=== PATIENT | female | born 1990 | race Hispanic/Latino ===

== ENCOUNTER 2018-10-14 20:03 | Inpatient (IN) | payer OTHER, BC ==
--- NOTE | 2018-10-14 21:33 | ED PDOC ---
HPI: General Adult Time Seen by Provider: 10/14/18 20:51 Chief Complaint (Nursing): Medical Clearance Chief Complaint (Provider): sent by PMD History Per: Patient History/Exam Limitations: no limitations Onset/Duration Of Symptoms: Days (2) Current Symptoms Are (Timing): Gone Now Additional Complaint(s): 27 y/o female sent by PMD for evaluation. Patient states Sunday night she was with her friend on her 4th alcoholic drink when she suddenly developed blurry vision to both eyes and then was trying to speak but no words were coming out. Patient states she then developed right-sided facial paralysis and was not able to move her right hand when she thought she was. Patient states symptoms lasted 20 minutes then resolved. Notes mild posterior headache yesterday, resolved without medication. Denies fever, headache, dizziness, extremity numbness/weakness, chest pain, shortness of breath, palpitations, changes in bowel movements, urinary symptoms, recent travel. Patient was evaluated by Dr. Reed Fierro today and sent to ED for further evaluation NIHSS Stroke Scale - Date/Time Evaluation Performed Date Performed: 10/14/18 Time Performed: 21:25 When Was NIHSS Performed: 24 hours post onset S/S - How Severe is the Stroke Level of Consciousness: 0=Alert LOC to Questions: 0=Both comments correct LOC to commands: 0=Obeys both correctly Best Gaze: 0=Normal Visual: 0=No visual loss Facial: 0=Normal Motor Arm - Left: 0=No drift Motor Arm - Right: 0=No drift Motor Leg - Left: 0=No drift Motor Leg - Right: 0=No drift Limb Ataxia: 0=Absent Sensory: 0=Normal Best Language: 0=No aphasia Dysarthia: 0=Normal articulation Extinction & Inattention (Neglect): 0=Normal, no object Score: 0 Past Medical History Reviewed: Historical Data, Nursing Documentation, Vital Signs Vital Signs: Last Vital Signs Temp 98.7 F 10/14/18 20:44 Pulse 69 10/14/18 20:44 Resp 16 10/14/18 20:44 BP 124/78 10/14/18 20:44 Pulse Ox 98 10/14/18 20:44 - Medical History PMH: No Chronic Diseases - Surgical History Surgical History: No Surg Hx - Family History Family History: States: No Known Family Hx - Home Medications Home Medications: Ambulatory Orders Medication Instructions Recorded Hydroxyzine HCl 10 mg PO DAILY PRN 10/14/18 - Allergies Allergies/Adverse Reactions: Allergies Allergy/AdvReac Type Severity Reaction Status Date / Time No Known Allergies Allergy Verified 10/14/18 20:42 Review of Systems ROS Statement: Except As Marked, All Systems Reviewed And Found Negative Physical Exam - Reviewed Nursing Documentation Reviewed: Yes Vital Signs Reviewed: Yes - Physical Exam Appears: Positive for: Well, Non-toxic, No Acute Distress Head Exam: Positive for: ATRAUMATIC, NORMAL INSPECTION, NORMOCEPHALIC Skin: Positive for: Normal Color Eye Exam: Positive for: EOMI, PERRL, Nystagmus (horizontal b/l). Negative for: Conjunctival injection ENT: Positive for: Normal ENT Inspection Cardiovascular/Chest: Positive for: Regular Rate, Rhythm Respiratory: Positive for: Normal Breath Sounds Gastrointestinal/Abdominal: Positive for: Normal Exam Back: Positive for: Normal Inspection Extremity: Positive for: Normal ROM Neurologic/Psych: Positive for: Alert, Oriented (x3). Negative for: Motor/Sensory Deficits, Facial Droop - Laboratory Results Result Diagrams: 10/14/18 22:18 10/14/18 22:18 - ECG ECG: Positive for: Viewed By Me (reviewed by ED attending) ECG Rhythm: Positive for: Sinus Bradycardia (51bpm) O2 Sat by Pulse Oximetry: 98 - Progress ED Course And Treament: -cbc -cmp -alcohol -urine drug screen -urinalysis -ekg -CT head -upreg EXAM: CT Head without Intravenous Contrast. CLINICAL HISTORY: Rt facial paralysis/ slurred speech 2 DAYS AGO TECHNIQUE: Axial computed tomography images of the head/brain without intravenous contrast. 702.84 mGy-cm COMPARISON: None provided. FINDINGS: BRAIN There is evidence of a subacute lacunar infarct in the left thalamus/left internal capsule region near series 2, images 11-12. The possibility of a small underlying lesion is not excluded. Consider correlation with MRI if indicated. Questionably a 2nd lacunar infarct in the left subinsular region, versus a prominent sulcus, near series 2, image 8-9. No midline shift. No evidence for acute intracranial hemorrhage. VENTRICLES: No hydrocephalus. ORBITS: The orbits are unremarkable. SINUSES AND MASTOIDS: The paranasal sinuses and mastoid air cells are clear. BONES: No fracture. SOFT TISSUES: Unremarkable. MISCELLANEOUS: No evidence for acute territorial infarction. IMPRESSION: 1. There is evidence of a subacute lacunar infarct in the left thalamus/left internal capsule region near series 2, images 11-12. The possibility of a small underlying lesion is not excluded. Consider correlation with MRI if indicated. 2. Questionably a 2nd lacunar infarct in the left subinsular region, versus a prominent sulcus, near series 2, image 8-9. 3. No evidence for acute territorial infarction. 4. No midline shift. 5. No evidence for acute intracranial hemorrhage Case discussed with Dr. Friedman, Neurologist on-call; recommends aspirin dose, admit to telemetry, and MRI in am Case discussed with Dr. Fierro for admission. Dr. Fierro spoke with ED attending Dr. Minor to request placement in ICU Patient evaluated by Dr. Pang, pot runner on-call, who does not feel patient requires ICU placement at this time Bilateral lower extremities venous duplex. Indication: Subacute brain infarct. Findings: Real-time ultrasound images of the deep venous system with Doppler evaluation. Normal compression, spontaneity and augmentation. Normal color Doppler. No intraluminal thrombus is seen. IMPRESSION: No evidence of deep venous thrombosis Disposition - Clinical Impression Clinical Impression: CVA (cerebral vascular accident) - Patient ED Disposition Is Patient to be Admitted: Yes - Disposition Disposition Time: 23:30 Condition: FAIR
[2018-10-14 22:34] LABS: BASO # 0.1 K/uL (0.0-0.2); BASO % 1.3 % (0.0-2.0); EOS # 0.1 K/uL (0.0-0.7); EOS % 1.7 % (0.0-4.0); HEMOGLOBIN 12.6 g/dL (12.0-16.0); LYMPH # 2.6 K/uL (1.0-4.3); LYMPH % 40.1 % (20.0-40.0); MEAN CORPUSCULAR HEMOGLOBIN 30.8 pg (27.0-31.0); MEAN CORPUSCULAR HGB CONC 32.7 g/dL (33.0-37.0); MEAN PLATELET VOLUME 8.9 fl (7.2-11.7); MONO # 0.3 K/uL (0.0-0.8); NEUT # 3.4 K/uL (1.8-7.0); NEUT % 51.9 % (50.0-75.0); RBC 4.09 Mil/uL (3.80-5.20); RED CELL DISTRIBUTION WIDTH 12.5 % (11.5-14.5); WHITE BLOOD COUNT 6.5 K/uL (4.8-10.8)
[2018-10-14 22:40] LABS: ALB/GLOB RATIO 1.2 (1.0-2.1); ALBUMIN 3.9 g/dL (3.5-5.0); ALT/SGPT 22 U/L (9-52); AST/SGOT 18 U/L (14-36); BLOOD UREA NITROGEN 13 mg/dl (7-17); CALCIUM 9.1 mg/dL (8.4-10.2); GFR NON-AFRICAN AMERICAN > 60
[2018-10-14 22:56] LABS: BARBITURATES, UR NEGATIVE (NEGATIVE); BENZODIAZEPINES, UR NEGATIVE (NEGATIVE); OPIATES, UR NEGATIVE (NEGATIVE); PHENCYCLIDINE, UR NEGATIVE (NEGATIVE)
--- NOTE | 2018-10-15 01:35 | CP.PCM.CON ---
History of Present Illness - History of Present Illness History of Present Illness: CC: Subacute CVA HPI: This is a 27 y/o with MHx significant for aquagenic urticara who comes in with c/o of TRACY today and CVA like symptoms about 2 days prior. Patient states that whe was out for dinner on Sat night, and after coming back home, she had a period where her vision was blurry. This was followed by weakness/abnormal sensation in R arm and paralysis of R side of face. This episode lasted 20 minutes and resolved. She states she had had EtOH prior -- but only 2 drinks -- and was not at all intoxicated. The next day patient noted multiple episodes (10+) of what sounds like word-finding difficulty, where she was trying to say something, but the wrong word would come out, and this is very unusual for her. Today she had a TRACY from the AM, and she went to see her PCP, and was sent to the ER for further workup. Patient denies any prior episodes like this before. Denies any recent f/c/n/v/d. Denies any CP, SOB, or palpitations. Denies any prior history of migraine TRACY. Denies any syncope/pre-syncope. She denies any new medications. She denies any drug use. She She notes that she is generally very active, and had run a marathon last month. She does note that she is on OCP. ROS: 14 systems reviewed, negative other than HPI MHx: aquagenic urticaria SHx: None Allergies: aquagenic urticaria as above Medications: Per med rec Family Hx: No significant illnesses in mother/father Social Hx: Lives with family, no tobacco, occ social EtOH Past Patient History - Past Social History Smoking Status: Never Smoked - PSYCHIATRIC Hx Substance Use: No Meds Allergies/Adverse Reactions: Allergies Allergy/AdvReac Type Severity Reaction Status Date / Time No Known Allergies Allergy Verified 10/14/18 20:42 Physical Exam - Constitutional Appears: No Acute Distress - Head Exam Head Exam: ATRAUMATIC, NORMOCEPHALIC - Eye Exam Eye Exam: EOMI, PERRL Pupil Exam: NORMAL ACCOMODATION - ENT Exam ENT Exam: Mucous Membranes Moist - Neck Exam Neck exam: Positive for: Full Rom - Respiratory Exam Respiratory Exam: Clear to Auscultation Bilateral, NORMAL BREATHING PATTERN - Cardiovascular Exam Cardiovascular Exam: REGULAR RHYTHM, +S1, +S2 Additional comments: no mumurs are noted - GI/Abdominal Exam GI & Abdominal Exam: Normal Bowel Sounds, Soft - Extremities Exam Extremities exam: Positive for: full ROM, normal inspection - Neurological Exam Neurological exam: Alert, CN II-XII Intact, Oriented x3 Additional comments: no focal deficits at this time - Psychiatric Exam Psychiatric exam: Normal Affect, Normal Mood - Skin Skin Exam: Dry, Warm Results - Vital Signs Recent Vital Signs: Last Vital Signs Temp 98.7 F 10/14/18 20:44 Pulse 69 10/14/18 20:44 Resp 16 10/14/18 20:44 BP 124/78 10/14/18 20:44 Pulse Ox 98 10/15/18 01:10 - Labs Result Diagrams: 10/14/18 22:18 10/14/18 22:18 Labs: Laboratory Results - last 24 hr 10/14/18 10/14/18 10/14/18 22:18 22:18 22:18 WBC 6.5 RBC 4.09 Hgb 12.6 Hct 38.5 MCV 94.0 MCH 30.8 MCHC 32.7 L RDW 12.5 Plt Count 247 MPV 8.9 Neut % (Auto) 51.9 Lymph % (Auto) 40.1 H [place] % (Auto) 5.0 Eos % (Auto) 1.7 Baso % (Auto) 1.3 Neut # (Auto) 3.4 Lymph # (Auto) 2.6 [place] # (Auto) 0.3 Eos # (Auto) 0.1 Baso # (Auto) 0.1 Sodium 140 Potassium 3.6 Chloride 100 Carbon Dioxide 26 Anion Gap 18 BUN 13 Creatinine 0.6 L Est GFR ( Amer) > 60 Est GFR (Non-Af Amer) > 60 Random Glucose 79 Calcium 9.1 Total Bilirubin 0.3 AST 18 ALT 22 Alkaline Phosphatase 61 Total Protein 7.0 Albumin 3.9 Globulin 3.1 Albumin/Globulin Ratio 1.2 Urine Opiates Screen Negative Urine Methadone Screen Negative Ur Barbiturates Screen Negative Ur Phencyclidine Scrn Negative Ur Amphetamines Screen Negative U Benzodiazepines Scrn Negative U Oth Cocaine Metabols Negative U Cannabinoids Screen Negative Alcohol, Quantitative < 10 - EKG Data EKG Interpreted by: Myself EKG shows normal: Sinus rhythm Rate: Bradycardia - EKG Data EKG comments: Sinus bradycardia - Imaging and Cardiology CT scan - head Status: Image reviewed by me, Report reviewed by me (Prelim read indicates multiple areas of subacute infarct) Assessment & Plan (1) CVA (cerebral vascular accident) Assessment and Plan: 27 y/o female with no other MHx presenting with signs/symptoms suspicious for CVA, which appear to have resolved. CT head notes lesions which may be c/w subacute CVA. At this time, after evaluating the patient, she does not appear to be an appropriate for admission to ICU. She has no current signs/symptoms/residual deficits from the CVA, her mental status is clear, her airway is not compromised, and her labwork thus far is WNL. There is also no acute intervention that needs to be performed in an ICU setting currently. If there is any acute change in her condition, I will re-evaluate her for transfer to ICU. I discussed all of this with her and her family, and they are in agreement with this plan. -Will add a CXR to workup for AM to confirm there are no gross cardiac/pulmonary abormality -Will add a1c to labwork for AM; will also add TSH/FT4 to AM labs to r/o possibility of intermittent a fib triggered by abnormality in thyroid function -Otherwise, MRI, carotid dopplers, and Echo with bubble study in AM as per neuro; ASA as per neuro Status: Acute
--- NOTE | 2018-10-15 10:13 | CT ---
Date of service: 10/14/2018 PROCEDURE: CT HEAD WITHOUT CONTRAST. HISTORY: right facial paralysis/slurred speech on sat COMPARISON: None available. TECHNIQUE: Axial computed tomography images were obtained through the head/brain without intravenous contrast. Radiation dose: Total exam DLP = 702.84 mGy-cm. This CT exam was performed using one or more of the following dose reduction techniques: Automated exposure control, adjustment of the mA and/or kV according to patient size, and/or use of iterative reconstruction technique. FINDINGS: HEMORRHAGE: No intracranial hemorrhage. BRAIN: There is a sub cm lucency identified at the anterior thalamus/medial external capsule suspicious for potential small ischemic event. Underlying lesion is not excluded here. Follow-up MRI without contrast is advised for added characterization. A small well-circumscribed lucency seen at the inferior margins of the left basal ganglia laterally, probably reflecting a dilated perivascular space with chronic lacune less likely. Otherwise, cyst density throughout the rollins and white matter structures is normal otherwise above and below the tentorium including throughout the brainstem. Normal corticomedullary differentiation is otherwise appreciated as well. No suspicious extra-axial collection and midline brain anatomy is unremarkable. VENTRICLES: Unremarkable. No hydrocephalus. CALVARIUM: Unremarkable. PARANASAL SINUSES: Unremarkable as visualized. No significant inflammatory changes. MASTOID AIR CELLS: Unremarkable as visualized. No inflammatory changes. OTHER FINDINGS: None. IMPRESSION: Lucency is ill-defined at the medial left basal ganglia/anterior left thalamus suspicious for potential ischemic event. Follow-up MRI advised without contrast. Probable dilated para space inferior left basal ganglia laterally. Remainder the brain is unremarkable. Concordant preliminary report from [facility], 10/14/2018, 10:53 p.m..
--- NOTE | 2018-10-15 11:28 | MRI ---
Date of service: 10/15/2018 PROCEDURE: MRI BRAIN WITHOUT CONTRAST HISTORY: subacute infarct COMPARISON: None available. TECHNIQUE: Multiplanar, multisequence MR images of the brain were obtained without intravenous contrast enhancement. FINDINGS: HEMORRHAGE: None DWI: Small area of restricted diffusion identified in the anterior and superior left thalamus compatible with acute subacute infarction. BRAIN PARENCHYMA: Exclusive of the left thalamus, remaining brain parenchymal density is normal. Dilated perivascular space in the inferior left basal ganglia as seen in prior head CT performed 10/14/2018. Corticomedullary differentiation remains normal above and below the tentorium exclusive of the left thalamus with brainstem normal in signal intensity. No suspicious extra-axial collection appreciated no mass effect. VENTRICLES: Unremarkable. No hydrocephalus. CRANIUM: Unremarkable. ORBITS: Grossly unremarkable. PARANASAL SINUSES/MASTOIDS: Clear VASCULAR SYSTEM: Skull base flow voids intact. OTHER FINDINGS: None. IMPRESSION: A small infarct is identified at the left thalamus on acute or subacute basis. No mass effect or definite intracranial hemorrhage appreciable. Examination not significantly changed compared prior CT 10/14/2018 with small dilated perivascular space favored over chronic lacune left basal ganglia inferiorly. Examination otherwise unremarkable.
--- NOTE | 2018-10-15 11:42 | CP.PCM.CON ---
History of Present Illness - History of Present Illness History of Present Illness: THE PATIENT IS A 27 YEAR OLD FEMALE WHO STATES THAT SHE HAS ALWAYS BEEN IN EXCELLENT HEALTH IN THE PAST. ON 10/12/18 IN THE EVENING SHE HAD A FEW DRINKS AND THEN HAS BLURRING VISION. RIGHT FACIAL PARALYSIS AND INABILITY TO SPEAK AND USE HER RIGHT HAND. SHE STATES THAT IT LASTED ABOUT THIRTY MINUTES. SHE WAS BETTER SUNDAY EVENING AND EVEN WENT TO WORK YESTERDAY. SHE DID HAVE A HEADACHE THOUGH YESTERDAY. SHE SAW DR SIBLEY IN THE OFFICE YESTERDAY EVENING AND HE REFERRED HER TO THE ER. A CAT SCAN SHOWED A LET CEREBRAL INFARCT AND SHE WAS ADMITTED. SHE DENIES CHEST PAIN, PALPITATIONS OR SYNCOPE. I WAS ASKED TO SEE HER. Past Patient History - Past Medical History & Family History Past Medical History?: No - Past Social History Smoking Status: Never Smoked - NEUROLOGICAL Hx Neurological Disorder: Yes - HEMATOLOGICAL/ONCOLOGICAL Hx AIDS: No Hx Human Immunodeficiency Virus (HIV): No - MUSCULOSKELETAL/RHEUMATOLOGICAL Hx Falls: No - PSYCHIATRIC Hx Substance Use: No - SURGICAL HISTORY Hx Surgeries: No - ANESTHESIA Hx Anesthesia: No Meds Allergies/Adverse Reactions: Allergies Allergy/AdvReac Type Severity Reaction Status Date / Time No Known Allergies Allergy Verified 10/14/18 20:42 Physical Exam - Respiratory Exam Respiratory Exam: Clear to Auscultation Bilateral - Cardiovascular Exam Cardiovascular Exam: REGULAR RHYTHM, +S1, +S2 - Extremities Exam Additional comments: NO LE EDEMA NO SIGNS OF DVT - Additional Findings Additional findings: EKG SINUS RHYTHM SHAKE SPLITTER SINUS RHYTHM CT OF HEAD WITH SMALL LEFT AREA SUSPICIOUS FOR AN INFARCT MRI PENDING Results - Vital Signs Recent Vital Signs: Last Vital Signs Temp 98.3 F 10/15/18 07:52 Pulse 64 10/15/18 07:52 Resp 18 10/15/18 07:52 BP 106/64 10/15/18 07:52 Pulse Ox 98 10/15/18 07:52 - Labs Result Diagrams: 10/14/18 22:18 10/14/18 22:18 Labs: Laboratory Results - last 24 hr 10/14/18 10/14/18 10/14/18 22:18 22:18 22:18 WBC 6.5 RBC 4.09 Hgb 12.6 Hct 38.5 MCV 94.0 MCH 30.8 MCHC 32.7 L RDW 12.5 Plt Count 247 MPV 8.9 Neut % (Auto) 51.9 Lymph % (Auto) 40.1 H [place] % (Auto) 5.0 Eos % (Auto) 1.7 Baso % (Auto) 1.3 Neut # (Auto) 3.4 Lymph # (Auto) 2.6 [place] # (Auto) 0.3 Eos # (Auto) 0.1 Baso # (Auto) 0.1 Sodium 140 Potassium 3.6 Chloride 100 Carbon Dioxide 26 Anion Gap 18 BUN 13 Creatinine 0.6 L Est GFR ( Amer) > 60 Est GFR (Non-Af Amer) > 60 POC Glucose (mg/dL) Random Glucose 79 Calcium 9.1 Total Bilirubin 0.3 AST 18 ALT 22 Alkaline Phosphatase 61 Total Protein 7.0 Albumin 3.9 Globulin 3.1 Albumin/Globulin Ratio 1.2 Free T4 TSH 3rd Generation Urine Opiates Screen Negative Urine Methadone Screen Negative Ur Barbiturates Screen Negative Ur Phencyclidine Scrn Negative Ur Amphetamines Screen Negative U Benzodiazepines Scrn Negative U Oth Cocaine Metabols Negative U Cannabinoids Screen Negative Alcohol, Quantitative < 10 10/15/18 10/15/18 10/15/18 04:30 04:30 05:13 WBC RBC Hgb Hct MCV MCH MCHC RDW Plt Count MPV Neut % (Auto) Lymph % (Auto) [place] % (Auto) Eos % (Auto) Baso % (Auto) Neut # (Auto) Lymph # (Auto) [place] # (Auto) Eos # (Auto) Baso # (Auto) Sodium Potassium Chloride Carbon Dioxide Anion Gap BUN Creatinine Est GFR ( Amer) Est GFR (Non-Af Amer) POC Glucose (mg/dL) 73 Random Glucose Calcium Total Bilirubin AST ALT Alkaline Phosphatase Total Protein Albumin Globulin Albumin/Globulin Ratio Free T4 0.93 TSH 3rd Generation 2.76 Urine Opiates Screen Urine Methadone Screen Ur Barbiturates Screen Ur Phencyclidine Scrn Ur Amphetamines Screen U Benzodiazepines Scrn U Oth Cocaine Metabols U Cannabinoids Screen Alcohol, Quantitative Assessment & Plan - Assessment and Plan (Free Text) Assessment: PROBABLE LEFT CEREBRAL INFARCT Plan: THE PATIENT WAS ADMITTED TO ON TELEMETRY SHE RECEIVED ASPIRIN IN THE ER MRI DONE-REPORT PENDING ECHOCARDIOGRAM NEUROLOGY TO EVALUATE
--- NOTE | 2018-10-15 12:02 | US ---
Date of service: 10/15/2018 PROCEDURE: Bilateral lower extremity venous duplex Doppler. HISTORY: r/out DVT COMPARISON: None available. TECHNIQUE: Bilateral common femoral, superficial femoral, popliteal and posterior tibial veins were evaluated. Flow was assessed with color Doppler, compressibility, assessment of phasic flow and augmentation response. FINDINGS: COMMON FEMORAL VEIN: Right CFV: Unremarkable. Left CFV: Unremarkable. SUPERFICIAL FEMORAL VEIN: Right SFV: Unremarkable. Left SFV: Unremarkable. POPLITEAL VEIN: Right Popliteal: Unremarkable. Left Popliteal: Unremarkable. POSTERIOR TIBIAL VEIN: Right PTV: Unremarkable. Left PTV: Unremarkable. OTHER FINDINGS: None. IMPRESSION: No evidence of deep venous thrombosis. A preliminary report was provided by [employer].
--- NOTE | 2018-10-15 12:33 | CARD ---
APPROVED REPORT Date of service: 10/14/2018 EKG Measurement Heart [id number] <Conclusion> Sinus bradycardia Otherwise normal ECG
[2018-10-15 12:37] LABS: HDL CHOLESTEROL 53 MG/DL (30-70)
[2018-10-15 12:48] LABS: LDL CHOLESTEROL 92 mg/dL (0-129)
--- NOTE | 2018-10-15 13:43 | US ---
Date of service: 10/15/2018 PROCEDURE: Duplex ultrasound of the carotid and vertebral arteries. HISTORY: subacute brain infarct COMPARISON: None available. TECHNIQUE: Grayscale and duplex Doppler evaluation of the cervical carotid and vertebral arteries were performed. The common carotid, carotid bifurcations and cervical ICA and proximal ECA were evaluated. The vertebral arteries were evaluated for gross patency and direction. FINDINGS: RIGHT CAROTID ARTERIES: Common Carotid Artery: Normal. Maximal flow velocity of 95 cm/s. Carotid Bifurcation: Normal. Internal Carotid Artery:Normal. Maximal flow velocity of 103 cm/s. External Carotid Artery (proximal branches): Normal. Maximal flow velocity of 98 cm/s. ICA/CCA Ratio: 1.4 LEFT CAROTID ARTERIES: Common Carotid Artery: Normal. Maximal flow velocity of 91 cm/s. Carotid Bifurcation: Normal. Internal Carotid Artery:Normal. Maximal flow velocity of 93 cm/s. External Carotid Artery (proximal branches): Normal. Maximal flow velocity of 117 cm/s. ICA/CCA Ratio: 1.0 VERTEBRAL ARTERIES: Right Vertebral Artery: Patent. Antegrade flow. Left Vertebral Artery: Patent. Antegrade flow. OTHER FINDINGS: No atherosclerotic calcification present IMPRESSION: No significant stenosis identified in bilateral common or cervical segment internal carotid arteries. Antegrade blood flow bilateral vertebral arteries.
[2018-10-15] MEDS ORDERED: Sodium Chloride 0.9% 50 ML IV ONE (15:20)
[2018-10-15] MEDS ORDERED: Iodixanol 320 MG/ML 100 ML BOTTLE IV ONE (15:20)
[2018-10-15 16:23] LABS: HEMOGLOBIN 12.8 g/dL (12.0-16.0); MEAN CELL VOLUME 93.6 fl (81.0-99.0); MEAN CORPUSCULAR HEMOGLOBIN 31.1 pg (27.0-31.0); MEAN CORPUSCULAR HGB CONC 33.2 g/dL (33.0-37.0); RBC 4.11 Mil/uL (3.80-5.20); RED CELL DISTRIBUTION WIDTH 12.6 % (11.5-14.5); WHITE BLOOD COUNT 4.9 K/uL (4.8-10.8)
[2018-10-15 16:33] LABS: ALB/GLOB RATIO 1.2 (1.0-2.1); ALBUMIN 3.7 g/dL (3.5-5.0); ALT/SGPT 26 U/L (9-52); AST/SGOT 18 U/L (14-36); BLOOD UREA NITROGEN 12 mg/dl (7-17); CALCIUM 9.1 mg/dL (8.4-10.2); GFR NON-AFRICAN AMERICAN > 60; HDL CHOLESTEROL 57 MG/DL (30-70)
--- NOTE | 2018-10-15 16:41 | CT ---
Date of service: 10/15/2018 PROCEDURE: CT Angiography of the Brain and Neck HISTORY: r/o occlusion, mri + cva COMPARISON: Carotid ultrasound 10/15/2018. TECHNIQUE: CT angiography of the head and neck was performed following intravenous contrast administration. Coronal and sagittal maximum intensity projection reformatted images were generated. Contrast Dose: Visipaque 320, 90 cc Radiation dose: Total exam DLP = 382.65 mGy-cm. This CT exam was performed using one or more of the following dose reduction techniques: Automated exposure control, adjustment of the mA and/or kV according to patient size, and/or use of iterative reconstruction technique. FINDINGS: INTERNAL CEREBRAL ARTERIES: Unremarkable. The skull base, petrous, cavernous and supraclinoid segments are bilaterally widely patent. ANTERIOR CEREBRAL ARTERIES: Unremarkable. A1 and A2 segments are widely patent. Smaller distal branches unremarkable, as visualized. MIDDLE CEREBRAL ARTERIES: Unremarkable. M1 and M2 segments are widely patent. Perisylvian branches grossly symmetric. POSTERIOR CIRCULATION: Basilar Artery: Unremarkable. Distal Vertebral Arteries: Balance vertebrobasilar circulation identified. Posterior Cerebral Arteries: Unremarkable. Posterior Inferior Cerebellar Arteries: Unremarkable. NECK CTA: Common Carotid arteries: The bilateral common carotid appear widely patent from their origins to their bifurcations with no significant stenosis appreciated. No evidence to suggest common carotid artery dissection. Internal Carotid arteries: No significant stenosis is appreciated throughout the cervical internal carotid artery segments bilaterally and there is no evidence of dissection either. External Carotid arteries: Appear unremarkable bilaterally. Vertebral arteries: The bilateral vertebral arteries appear normal in caliber from their origins to their distal cervical segments. No significant stenosis or definite pattern of dissection. ANEURYSM/ VASCULAR MALFORMATIONS: None. OTHER FINDINGS: None. IMPRESSION: Unremarkable CT Angiography of the Brain and Neck.
[2018-10-15 16:53] LABS: LDL CHOLESTEROL 96 mg/dL (0-129)
[2018-10-15 16:55] LABS: B-TYPE NATRIURETIC PEPTIDE 53.3 pg/ml (0-450)
[2018-10-15 16:59] LABS: T4 8.66 ug/dl (5.5-11.0)
[2018-10-15 17:13] LABS: T3 1.47 nmol/L (1.49-2.60)
[2018-10-15 17:33] LABS: CK-MB < 0.22 ng/mL (0.0-3.38)
--- NOTE | 2018-10-15 20:12 | CP.PCM.CON ---
History of Present Illness - History of Present Illness History of Present Illness: 27 year old female with a history of eczema, admitted with CVA. The patient notes to blurry vision, right arm weakness and aphasia which lasted about 30 minutes on Sunday. She saw her PMD about her symptoms who referred her to the ER. An MRI of the brain revealed an acute/subacute infarct involving the thalamus. Of note, she is taking control pills. She denies abnormal bleeding, bruising, clotting in the past. Past medical history: Eczema Past surgical history: Denies Family history: Grandmother had strokes in her 60s, grandfather had [place] in his 50's Social history: Denies tobacco, social alcohol, denies illicit drug use. Allergies: NKA Review of systems: All remaining review of systems including HEENT, cardiovascular, respiratory, gastrointestinal, genitourinary, musculoskeletal, dermatologic, neurologic, and psychiatric are negative unless mentioned in the HPI. Past Patient History - Past Medical History & Family History Past Medical History?: No - Past Social History Smoking Status: Never Smoked - NEUROLOGICAL Hx Neurological Disorder: Yes - HEMATOLOGICAL/ONCOLOGICAL Hx AIDS: No Hx Human Immunodeficiency Virus (HIV): No - MUSCULOSKELETAL/RHEUMATOLOGICAL Hx Falls: No - PSYCHIATRIC Hx Substance Use: No - SURGICAL HISTORY Hx Surgeries: No - ANESTHESIA Hx Anesthesia: No Meds Allergies/Adverse Reactions: Allergies Allergy/AdvReac Type Severity Reaction Status Date / Time No Known Allergies Allergy Verified 10/14/18 20:42 - Medications Medications: Current Medications Aspirin (Aspirin) 325 mg PO DAILY ANA Atorvastatin Calcium (Lipitor) 10 mg PO HS ANA Physical Exam - Head Exam Head Exam: ATRAUMATIC - Eye Exam Eye Exam: Normal appearance - ENT Exam ENT Exam: Mucous Membranes Dry - Respiratory Exam Respiratory Exam: NORMAL BREATHING PATTERN - Cardiovascular Exam Cardiovascular Exam: +S1, +S2 - GI/Abdominal Exam GI & Abdominal Exam: Normal Bowel Sounds - Extremities Exam Extremities exam: Positive for: normal inspection - Neurological Exam Neurological exam: Oriented x3 - Psychiatric Exam Psychiatric exam: Normal Affect, Normal Mood - Skin Skin Exam: Warm Results - Vital Signs Recent Vital Signs: Last Vital Signs Temp 98.1 F 10/15/18 20:02 Pulse 60 10/15/18 20:02 Resp 20 10/15/18 20:02 BP 129/83 10/15/18 20:02 Pulse Ox 98 10/15/18 20:02 - Labs Result Diagrams: 10/15/18 16:18 10/15/18 16:18 Labs: Laboratory Results - last 24 hr 10/14/18 10/14/18 10/14/18 22:18 22:18 22:18 WBC 6.5 RBC 4.09 Hgb 12.6 Hct 38.5 MCV 94.0 MCH 30.8 MCHC 32.7 L RDW 12.5 Plt Count 247 MPV 8.9 Neut % (Auto) 51.9 Lymph % (Auto) 40.1 H [place] % (Auto) 5.0 Eos % (Auto) 1.7 Baso % (Auto) 1.3 Neut # (Auto) 3.4 Lymph # (Auto) 2.6 [place] # (Auto) 0.3 Eos # (Auto) 0.1 Baso # (Auto) 0.1 ESR Sodium 140 Potassium 3.6 Chloride 100 Carbon Dioxide 26 Anion Gap 18 BUN 13 Creatinine 0.6 L Est GFR ( Amer) > 60 Est GFR (Non-Af Amer) > 60 POC Glucose (mg/dL) Random Glucose 79 Hemoglobin A1c Calcium 9.1 Total Bilirubin 0.3 AST 18 ALT 22 Alkaline Phosphatase 61 Total Creatine Kinase CK-MB (Mass) Troponin I NT-Pro-B Natriuret Pep Total Protein 7.0 Albumin 3.9 Globulin 3.1 Albumin/Globulin Ratio 1.2 Triglycerides Cholesterol LDL Cholesterol Direct HDL Cholesterol Vitamin B12 Free T4 Thyroxine (T4) Total T3 TSH 3rd Generation Urine Opiates Screen Negative Urine Methadone Screen Negative Ur Barbiturates Screen Negative Ur Phencyclidine Scrn Negative Ur Amphetamines Screen Negative U Benzodiazepines Scrn Negative U Oth Cocaine Metabols Negative U Cannabinoids Screen Negative Alcohol, Quantitative < 10 10/15/18 10/15/18 10/15/18 04:30 04:30 04:30 WBC RBC Hgb Hct MCV MCH MCHC RDW Plt Count MPV Neut % (Auto) Lymph % (Auto) [place] % (Auto) Eos % (Auto) Baso % (Auto) Neut # (Auto) Lymph # (Auto) [place] # (Auto) Eos # (Auto) Baso # (Auto) ESR Sodium Potassium Chloride Carbon Dioxide Anion Gap BUN Creatinine Est GFR ( Amer) Est GFR (Non-Af Amer) POC Glucose (mg/dL) Random Glucose Hemoglobin A1c 5.3 Calcium Total Bilirubin AST ALT Alkaline Phosphatase Total Creatine Kinase CK-MB (Mass) Troponin I NT-Pro-B Natriuret Pep Total Protein Albumin Globulin Albumin/Globulin Ratio Triglycerides Cholesterol LDL Cholesterol Direct HDL Cholesterol Vitamin B12 Free T4 0.93 Thyroxine (T4) Total T3 TSH 3rd Generation 2.76 Urine Opiates Screen Urine Methadone Screen Ur Barbiturates Screen Ur Phencyclidine Scrn Ur Amphetamines Screen U Benzodiazepines Scrn U Oth Cocaine Metabols U Cannabinoids Screen Alcohol, Quantitative 10/15/18 10/15/18 10/15/18 05:13 11:20 12:20 WBC RBC Hgb Hct MCV MCH MCHC RDW Plt Count MPV Neut % (Auto) Lymph % (Auto) [place] % (Auto) Eos % (Auto) Baso % (Auto) Neut # (Auto) Lymph # (Auto) [place] # (Auto) Eos # (Auto) Baso # (Auto) ESR Sodium Potassium Chloride Carbon Dioxide Anion Gap BUN Creatinine Est GFR ( Amer) Est GFR (Non-Af Amer) POC Glucose (mg/dL) 73 100 Random Glucose Hemoglobin A1c Calcium Total Bilirubin AST ALT Alkaline Phosphatase Total Creatine Kinase CK-MB (Mass) Troponin I NT-Pro-B Natriuret Pep Total Protein Albumin Globulin Albumin/Globulin Ratio Triglycerides 72 Cholesterol 154 LDL Cholesterol Direct 92 HDL Cholesterol 53 Vitamin B12 Free T4 Thyroxine (T4) Total T3 TSH 3rd Generation Urine Opiates Screen Urine Methadone Screen Ur Barbiturates Screen Ur Phencyclidine Scrn Ur Amphetamines Screen U Benzodiazepines Scrn U Oth Cocaine Metabols U Cannabinoids Screen Alcohol, Quantitative 10/15/18 10/15/18 16:18 16:18 WBC 4.9 RBC 4.11 Hgb 12.8 Hct 38.5 MCV 93.6 MCH 31.1 H MCHC 33.2 RDW 12.6 Plt Count 256 MPV Neut % (Auto) Lymph % (Auto) [place] % (Auto) Eos % (Auto) Baso % (Auto) Neut # (Auto) Lymph # (Auto) [place] # (Auto) Eos # (Auto) Baso # (Auto) ESR 13 Sodium 138 Potassium 4.1 Chloride 101 Carbon Dioxide 23 Anion Gap 18 BUN 12 Creatinine 0.6 L Est GFR ( Amer) > 60 Est GFR (Non-Af Amer) > 60 POC Glucose (mg/dL) Random Glucose 115 H Hemoglobin A1c Calcium 9.1 Total Bilirubin 0.3 AST 18 ALT 26 Alkaline Phosphatase 56 Total Creatine Kinase 24 L CK-MB (Mass) < 0.22 Troponin I < 0.0120 NT-Pro-B Natriuret Pep 53.3 Total Protein 6.8 Albumin 3.7 Globulin 3.1 Albumin/Globulin Ratio 1.2 Triglycerides 83 Cholesterol 159 LDL Cholesterol Direct 96 HDL Cholesterol 57 Vitamin B12 391 Free T4 Thyroxine (T4) 8.66 Total T3 1.47 L TSH 3rd Generation 2.28 Urine Opiates Screen Urine Methadone Screen Ur Barbiturates Screen Ur Phencyclidine Scrn Ur Amphetamines Screen U Benzodiazepines Scrn U Oth Cocaine Metabols U Cannabinoids Screen Alcohol, Quantitative Assessment & Plan (1) CVA (cerebral vascular accident) Assessment and Plan: ? 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 Status: Acute
--- NOTE | 2018-10-15 20:27 | CP.PCM.HP ---
History of Present Illness - History of Present Illness History of Present Illness: 27 yo, on BCP, admitted for acute/ subacute CVA Present on Admission - Present on Admission Any Indicators Present on Admission: No Past Patient History - Past Medical History & Family History Past Medical History?: No - Past Social History Smoking Status: Never Smoked - NEUROLOGICAL Hx Neurological Disorder: Yes - HEMATOLOGICAL/ONCOLOGICAL Hx AIDS: No Hx Human Immunodeficiency Virus (HIV): No - MUSCULOSKELETAL/RHEUMATOLOGICAL Hx Falls: No - PSYCHIATRIC Hx Substance Use: No - SURGICAL HISTORY Hx Surgeries: No - ANESTHESIA Hx Anesthesia: No Meds Allergies/Adverse Reactions: Allergies Allergy/AdvReac Type Severity Reaction Status Date / Time No Known Allergies Allergy Verified 10/14/18 20:42 Physical Exam - Respiratory Exam Respiratory Exam: NORMAL BREATHING PATTERN - Cardiovascular Exam Cardiovascular Exam: REGULAR RHYTHM - GI/Abdominal Exam GI & Abdominal Exam: Normal Bowel Sounds Results - Vital Signs Recent Vital Signs: Last Vital Signs Temp 98.1 F 10/15/18 20:02 Pulse 60 10/15/18 20:02 Resp 20 10/15/18 20:02 BP 129/83 10/15/18 20:02 Pulse Ox 98 10/15/18 20:02 - Labs Result Diagrams: 10/15/18 16:18 10/15/18 16:18 Labs: Laboratory Results - last 24 hr 10/14/18 10/14/18 10/14/18 22:18 22:18 22:18 WBC 6.5 RBC 4.09 Hgb 12.6 Hct 38.5 MCV 94.0 MCH 30.8 MCHC 32.7 L RDW 12.5 Plt Count 247 MPV 8.9 Neut % (Auto) 51.9 Lymph % (Auto) 40.[address] [place] % (Auto) 5.0 Eos % (Auto) 1.7 Baso % (Auto) 1.3 Neut # (Auto) 3.4 Lymph # (Auto) 2.6 [place] # (Auto) 0.3 Eos # (Auto) 0.1 Baso # (Auto) 0.1 ESR Sodium 140 Potassium 3.6 Chloride 100 Carbon Dioxide 26 Anion Gap 18 BUN 13 Creatinine 0.6 L Est GFR ( Amer) > 60 Est GFR (Non-Af Amer) > 60 POC Glucose (mg/dL) Random Glucose 79 Hemoglobin A1c Calcium 9.1 Total Bilirubin 0.3 AST 18 ALT 22 Alkaline Phosphatase 61 Total Creatine Kinase CK-MB (Mass) Troponin I NT-Pro-B Natriuret Pep Total Protein 7.0 Albumin 3.9 Globulin 3.1 Albumin/Globulin Ratio 1.2 Triglycerides Cholesterol LDL Cholesterol Direct HDL Cholesterol Vitamin B12 Free T4 Thyroxine (T4) Total T3 TSH 3rd Generation Urine Opiates Screen Negative Urine Methadone Screen Negative Ur Barbiturates Screen Negative Ur Phencyclidine Scrn Negative Ur Amphetamines Screen Negative U Benzodiazepines Scrn Negative U Oth Cocaine Metabols Negative U Cannabinoids Screen Negative Alcohol, Quantitative < 10 10/15/18 10/15/18 10/15/18 04:30 04:30 04:30 WBC RBC Hgb Hct MCV MCH MCHC RDW Plt Count MPV Neut % (Auto) Lymph % (Auto) [place] % (Auto) Eos % (Auto) Baso % (Auto) Neut # (Auto) Lymph # (Auto) [place] # (Auto) Eos # (Auto) Baso # (Auto) ESR Sodium Potassium Chloride Carbon Dioxide Anion Gap BUN Creatinine Est GFR ( Amer) Est GFR (Non-Af Amer) POC Glucose (mg/dL) Random Glucose Hemoglobin A1c 5.3 Calcium Total Bilirubin AST ALT Alkaline Phosphatase Total Creatine Kinase CK-MB (Mass) Troponin I NT-Pro-B Natriuret Pep Total Protein Albumin Globulin Albumin/Globulin Ratio Triglycerides Cholesterol LDL Cholesterol Direct HDL Cholesterol Vitamin B12 Free T4 0.93 Thyroxine (T4) Total T3 TSH 3rd Generation 2.76 Urine Opiates Screen Urine Methadone Screen Ur Barbiturates Screen Ur Phencyclidine Scrn Ur Amphetamines Screen U Benzodiazepines Scrn U Oth Cocaine Metabols U Cannabinoids Screen Alcohol, Quantitative 10/15/18 10/15/18 10/15/18 05:13 11:20 12:20 WBC RBC Hgb Hct MCV MCH MCHC RDW Plt Count MPV Neut % (Auto) Lymph % (Auto) [place] % (Auto) Eos % (Auto) Baso % (Auto) Neut # (Auto) Lymph # (Auto) [place] # (Auto) Eos # (Auto) Baso # (Auto) ESR Sodium Potassium Chloride Carbon Dioxide Anion Gap BUN Creatinine Est GFR ( Amer) Est GFR (Non-Af Amer) POC Glucose (mg/dL) 73 100 Random Glucose Hemoglobin A1c Calcium Total Bilirubin AST ALT Alkaline Phosphatase Total Creatine Kinase CK-MB (Mass) Troponin I NT-Pro-B Natriuret Pep Total Protein Albumin Globulin Albumin/Globulin Ratio Triglycerides 72 Cholesterol 154 LDL Cholesterol Direct 92 HDL Cholesterol 53 Vitamin B12 Free T4 Thyroxine (T4) Total T3 TSH 3rd Generation Urine Opiates Screen Urine Methadone Screen Ur Barbiturates Screen Ur Phencyclidine Scrn Ur Amphetamines Screen U Benzodiazepines Scrn U Oth Cocaine Metabols U Cannabinoids Screen Alcohol, Quantitative 10/15/18 10/15/18 16:18 16:18 WBC 4.9 RBC 4.11 Hgb 12.8 Hct 38.5 MCV 93.6 MCH 31.1 H MCHC 33.2 RDW 12.6 Plt Count 256 MPV Neut % (Auto) Lymph % (Auto) [place] % (Auto) Eos % (Auto) Baso % (Auto) Neut # (Auto) Lymph # (Auto) [place] # (Auto) Eos # (Auto) Baso # (Auto) ESR 13 Sodium 138 Potassium 4.1 Chloride 101 Carbon Dioxide 23 Anion Gap 18 BUN 12 Creatinine 0.6 L Est GFR ( Amer) > 60 Est GFR (Non-Af Amer) > 60 POC Glucose (mg/dL) Random Glucose 115 H Hemoglobin A1c Calcium 9.1 Total Bilirubin 0.3 AST 18 ALT 26 Alkaline Phosphatase 56 Total Creatine Kinase 24 L CK-MB (Mass) < 0.22 Troponin I < 0.0120 NT-Pro-B Natriuret Pep 53.3 Total Protein 6.8 Albumin 3.7 Globulin 3.1 Albumin/Globulin Ratio 1.2 Triglycerides 83 Cholesterol 159 LDL Cholesterol Direct 96 HDL Cholesterol 57 Vitamin B12 391 Free T4 Thyroxine (T4) 8.66 Total T3 1.47 L TSH 3rd Generation 2.28 Urine Opiates Screen Urine Methadone Screen Ur Barbiturates Screen Ur Phencyclidine Scrn Ur Amphetamines Screen U Benzodiazepines Scrn U Oth Cocaine Metabols U Cannabinoids Screen Alcohol, Quantitative Assessment & Plan - Assessment and Plan (Free Text) Assessment: Acute/ subacute CVA L thalamus ASA W/U in progress Neurology Cardiology Hematology Multiple calls to consultants/ FILL MANAGER - Date & Time Date: 10/15/18 Time: 22:22
--- NOTE | 2018-10-15 21:02 | CARD ---
APPROVED REPORT Date of service: 10/15/2018 EXAM: Two-dimensional and M-mode echocardiogram with Doppler, color Doppler with bubble study. Other Information Quality : GoodRhythm : NSR INDICATION CVA/TIA Echo Enhancing Agent Indication: Rule Out Septal Defect Agent/Amount Used: Agitated Saline 2D DIMENSIONS IVSd0.56 (0.7-1.1cm)LVDd4.82 (3.9-5.9cm) PWd0.70 (0.7-1.1cm)IVSs1.14 (0.8-1.2cm) LVDs3.09 (2.5-4.0cm)FS (%) 35.9 % PWs1.09 (0.8-1.2cm) M-Mode DIMENSIONS Left Atrium (MM)3.24 (2.5-4.0cm)IVSd0.64 (0.7-1.1cm) Aortic Root2.47 (2.2-3.7cm)LVDd5.27 (4.0-5.6cm) Aortic Cusp Exc.2.01 (1.5-2.0cm)PWd0.86 (0.7-1.1cm) IVSs1.28 cmFS (%) 31 % LVDs3.64 (2.0-3.8cm)PWs1.13 cm Aortic Valve AoV Peak Jhgoqemq544.7cm/sAoV VTI31.8cmAO Peak GR.8mmHg LVOT Peak Nzpktsvw183.2cm/sLVOT VTI28.00cmAO Mean GR.5mmHg Mitral Valve MV E Kucfjjlq88.2cm/sMV DECEL [id number] A Thjwfiew52.0cm/s MV HMF30bdI/A ratio1.7MVA (PHT)3.59cm2 TDI E/Lateral E'0.0E/Medial E'0.0 LEFT VENTRICLE The left ventricle is normal size. There is normal left ventricular wall thickness. The left ventricular systolic function is normal. The estimated ejection fraction is 55-60% No regional wall motion abnormalities noted.. The left ventricular diastolic function is normal. No left ventricle thrombus noted on this study. There is no ventricular septal defect visualized. There is no left ventricular aneurysm. There is no mass noted in the left ventricle. RIGHT VENTRICLE The right ventricle is normal size. There is normal right ventricular wall thickness. The right ventricular systolic function is normal. ATRIA The left atrium size is normal. The right atrium size is normal. There is large size atrial septal defect, likely septum secundum defect. Demonstraed on agitated saline contrast with predominant left to right shunt. AORTIC VALVE The aortic valve is normal in structure. No aortic regurgitation is present. There is no aortic valvular stenosis. There is no aortic valvular vegetation. MITRAL VALVE The mitral valve is normal in structure. There is no evidence of mitral valve prolapse. There is no mitral valve stenosis. There is trivial mitral valve regurgitation noted. TRICUSPID VALVE The tricuspid valve is normal in structure. There is trace tricuspid valve regurgitation noted. There is no tricuspid valve prolapse or vegetation. There is no tricuspid valve stenosis. PULMONIC VALVE The pulmonary valve is normal in structure. There is no pulmonic valvular regurgitation. There is no pulmonic valvular stenosis. GREAT VESSELS The aortic root is normal in size. The ascending aorta is normal in size. The pulmonary artery is normal. The IVC is normal in size and collapses >50% with inspiration. PERICARDIAL EFFUSION There is no pericardial effusion. There is no pleural effusion. <Conclusion> The estimated ejection fraction is 55-60% The left ventricular diastolic function is normal. The left atrium size is normal. There is a large size atrial septal defect, likely septum secundum defect. Demonstraed on agitated saline contrast. CONSIDER FURTHER WORK UP. There is trace tricuspid valve regurgitation noted.
--- NOTE | 2018-10-15 23:48 | CP.PCM.CON ---
History of Present Illness - History of Present Illness History of Present Illness: Neurology consult called by Dr. Jaskaran Ayala. MIss Frias is a pleasant young woman who was at home with her friends on Sunday, , when she had blurriness of vision, right hand and arm weakness. She was not drinking alcohol, or doing drugs, and has not had prior spells. Symptoms resolved and she did not come in to the hospital until Sunday night. CT head was done that showed an old subacute infarct with MRI Brain showing new left thalamus ischemic stroke. Patient has a history of headache, not migraine, but no prior spells of dvt, stroke, or GA. 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 no tobaccco. NO family history of stroke, or GA at young age. All: nkda. ON exam: AAOX3. PERRL. CN 2-12 normal. EOMI. Speech fluent. MMS: 30/30 strength: 5/5 ul and ll bl. sensory: intact ft, pin, position and vibration sense. Gait normal. no ataxia no dysmetria. +2 ul and ll bl. Review of Systems - Constitutional Constitutional: absent: As Per HPI, Anorexia, Chills, Daytime Sleepiness, Excessive Sweating, Fatigue, Fever, Frequent Falls, Headache, Increased A ppetite, Lethargy, Malaise, Night Sweats, Snoring, Sleep Apnea, Weight Gain, Weight Loss, Weakness, Other - EENT Eyes: absent: As Per HPI, Blind Spots, Blurred Vision, Change in Vision, Decreased Night Vision, Diplopia, Discharge, Dry Eye, Exophthalmos, Floaters, Irritation, Itchy Eyes, Loss of Peripheral Vision, Pain, Photophobia, Requires Corrective Lenses, Sees Flashes, Spots in Vision, Tunnel Vision, Other Visual Disturbances, Loss of Vision, Other Ears: absent: As Per HPI, Decreased Hearing, Ear Discharge, Ear Pain, Tinnitus, Abnormal Hearing, Disequilibrium, Dizziness, Other Nose/Mouth/Throat: absent: As Per HPI, Epistaxis, Nasal Congestion, Nasal Discharge, Nasal Obstruction, Nasal Trauma, Nose Pain, Post Nasal Drip, Sinus Pain, Sinus Pressure, Bleeding Gums, Change in Voice, Dental Pain, Dry Mouth, Dysphagia, Halitosis, Hoarsness, Lip Swelling, Mouth Lesions, Mouth Pain, Odynophagia, Sore Throat, Throat Swelling, Tongue Swelling, Facial Pain, Neck Pain, Neck Mass, Other - Breasts Breasts: absent: As Per HPI, Change in Shape, Mass, Pain, Nipple Discharge, Nipple Inversion, Skin Changes, Swelling, Other - Cardiovascular Cardiovascular: absent: As Per HPI, Acrocyanosis, Chest Pain, Chest Pain at Rest, Chest Pain with Activity, Claudication, Diaphoresis, Dyspnea, Dyspnea on Exertion, Edema, Irregular Heart Rhythm, Pain Radiating to Arm/Neck/Jaw, Leg Edema, Leg Ulcers, Lightheadedness, Orthopnea, Palpitations, Paroxysmal Nocturnal Dyspnea, Pedal Edema, Radiating Pain, Rapid Heart Rate, Slow Heart Rate, Syncope, Other - Respiratory Respiratory: absent: As Per HPI, Cough, Dyspnea, Hemoptysis, Dyspnea on Exertion, Wheezing, Snoring, Stridor, Pain on Inspiration, Chest Congestion, Excessive Mucous Production, Change in Mucous Color, Pain with Coughing, Other - Gastrointestinal Gastrointestinal: absent: As Per HPI, Abdominal Pain, Belching, Bloating, Change in Bowel Habits, Change in Stool Character, Coffee Ground Emesis, Constipation, Cramping, Diarrhea, Dyspepsia, Dysphagia, Early Satiety, Excessive Flatus, Fecal Incontinence, Heartburn, Hematemesis, Hematochezia, Loose Stools, Melena, Nausea, Odynophagia, Temesmus, Vomiting, Other - Genitourinary Genitourinary: absent: As Per HPI, Change in Urinary Stream, Difficulty Urinating, Dysuria, Flank Pain, Hematuria, Pyuria, Nocturia, Urinary Incontinence, Urinary Frequency, Urinary Hesitance, Urinary Urgency, Voiding Freq/Small Amts, Freq UTI, Hx Renal/Bladder Calculi, Hx /Renal Surgery, Bladder Distension, Other - Reproductive: Female Reproductive:Female: absent: As Per HPI, Amenorrhea, Amenorrhea/ Control, Currently Menstual, Cycle <21 Days, Cycle >35 Days, Cycle Variable, Menses 1-7 Days, Menses >/= 8 Days, Menses Variable, Cycle > 4 Weeks Between, No Menses for 6 Months, Heavy Menses, Light Menses, Normal Menses, Spotting Between Cycles, S/P Hysterectomy, Menopausal, Post Menopausal, Premenarche, Abnormal Vaginal Bleeding, Dysmenorrhea, Dyspareunia, Genital Lesions, Genital Pruritis, Pelvic Pain, Prolapse Symptoms, Sexual Dysfunction, Vaginal Discharge, Vaginal Dryness, Vaginal Odor, Vaginal Pruritis, Other - Menstruation Menstruation: absent: As Per HPI, Amenorrhea, Amenorrhea/ Control, Currently Menstual, Cycle <21 Days, Cycle >35 Days, Cycle Variable, Menses 1-7 Days, Menses >/= 8 Days, Menses Variable, Cycle > 4 Weeks Between, No Menses for 6 Months, Heavy Menses, Light Menses, Normal Menses, Spotting Between Cycles, S/P Hysterectomy, Menopausal, Post Menopausal, Premenarche, Abnormal Vaginal Bleeding, Dysmenorrhea, Other - Musculoskeletal Musculoskeletal: absent: As Per HPI, Abnormal Gait, Arthralgias, Atrophy, Back Pain, Deformity, Joint Swelling, Limited Range of Motion, Loss of Height, Muscle Cramps, Muscle Weakness, Myalgias, Neck Pain, Numbness, Radiating Pain into Limb, Stiffness, Tingling, Other - Integumentary Integumentary: absent: As Per HPI, Acne, Alopecia, Bleeding Lesions, Change in Hair, Change in Nails, Change in Pigmentation, Changing Lesions, Dry Skin, Erythema, Furuncle, Hirsutism, Lesions, New Lesions, Non-Healing Lesions, Photosensitivity, Pruritus, Rash, Skin Pain, Skin Ulcer, Sores, Striae, Swelli ng, Unusual Bruising, Wounds, Jaundice, Other - Neurological Neurological: absent: As Per HPI, Abnormal Gait, Abnormal Hearing, Abnormal Movements, Abnormal Speech, Behavioral Changes, Burning Sensations, Confusion, Convulsions, Disequilibrium, Dizziness, Numbness, Focal Weakness, Frequent Falls, Headaches, Lack of Coordination, Loss of Vision, Memory Loss, P aresthesias, Radicular Pain, Restless Legs, Sensory Deficit, Syncope, Tingling, Tremor, Vertigo, Weakness, Other Visual Disturbances, Other Past Patient History - Past Medical History & Family History Past Medical History?: No - Past Social History Smoking Status: Never Smoked - NEUROLOGICAL Hx Neurological Disorder: Yes - HEMATOLOGICAL/ONCOLOGICAL Hx AIDS: No Hx Human Immunodeficiency Virus (HIV): No - MUSCULOSKELETAL/RHEUMATOLOGICAL Hx Falls: No - PSYCHIATRIC Hx Substance Use: No - SURGICAL HISTORY Hx Surgeries: No - ANESTHESIA Hx Anesthesia: No Meds Allergies/Adverse Reactions: Allergies Allergy/AdvReac Type Severity Reaction Status Date / Time No Known Allergies Allergy Verified 10/14/18 20:42 - Medications Medications: Current Medications Aspirin (Aspirin) 325 mg PO DAILY [facility] Atorvastatin Calcium (Lipitor) 10 mg PO HS ANA Last Admin: 10/15/18 21:29 Dose: 10 mg Results - Vital Signs Recent Vital Signs: Last Vital Signs Temp 98.1 F 10/15/18 20:02 Pulse 62 10/15/18 21:00 Resp 20 10/15/18 20:02 BP 129/83 10/15/18 20:02 Pulse Ox 98 10/15/18 20:02 - Labs Result Diagrams: 10/15/18 16:18 10/15/18 16:18 Labs: Laboratory Results - last 24 hr 10/15/18 10/15/18 10/15/18 04:30 04:30 04:30 WBC RBC Hgb Hct MCV MCH MCHC RDW Plt Count ESR Sodium Potassium Chloride Carbon Dioxide Anion Gap BUN Creatinine Est GFR ( Amer) Est GFR (Non-Af Amer) POC Glucose (mg/dL) Random Glucose Hemoglobin A1c 5.3 Calcium Total Bilirubin AST ALT Alkaline Phosphatase Total Creatine Kinase CK-MB (Mass) Troponin I NT-Pro-B Natriuret Pep Total Protein Albumin Globulin Albumin/Globulin Ratio Triglycerides Cholesterol LDL Cholesterol Direct HDL Cholesterol Vitamin B12 Free T4 0.93 Thyroxine (T4) Total T3 TSH 3rd Generation 2.76 10/15/18 10/15/18 10/15/18 05:13 11:20 12:20 WBC RBC Hgb Hct MCV MCH MCHC RDW Plt Count ESR Sodium Potassium Chloride Carbon Dioxide Anion Gap BUN Creatinine Est GFR ( Amer) Est GFR (Non-Af Amer) POC Glucose (mg/dL) 73 100 Random Glucose Hemoglobin A1c Calcium Total Bilirubin AST ALT Alkaline Phosphatase Total Creatine Kinase CK-MB (Mass) Troponin I NT-Pro-B Natriuret Pep Total Protein Albumin Globulin Albumin/Globulin Ratio Triglycerides 72 Cholesterol 154 LDL Cholesterol Direct 92 HDL Cholesterol 53 Vitamin B12 Free T4 Thyroxine (T4) Total T3 TSH 3rd Generation 10/15/18 10/15/18 16:18 16:18 WBC 4.9 RBC 4.11 Hgb 12.8 Hct 38.5 MCV 93.6 MCH 31.1 H MCHC 33.2 RDW 12.6 Plt Count 256 ESR 13 Sodium 138 Potassium 4.1 Chloride 101 Carbon Dioxide 23 Anion Gap 18 BUN 12 Creatinine 0.6 L Est GFR ( Amer) > 60 Est GFR (Non-Af Amer) > 60 POC Glucose (mg/dL) Random Glucose 115 H Hemoglobin A1c Calcium 9.1 Total Bilirubin 0.3 AST 18 ALT 26 Alkaline Phosphatase 56 Total Creatine Kinase 24 L CK-MB (Mass) < 0.22 Troponin I < 0.0120 NT-Pro-B Natriuret Pep 53.3 Total Protein 6.8 Albumin 3.7 Globulin 3.1 Albumin/Globulin Ratio 1.2 Triglycerides 83 Cholesterol 159 LDL Cholesterol Direct 96 HDL Cholesterol 57 Vitamin B12 391 Free T4 Thyroxine (T4) 8.66 Total T3 1.47 L TSH 3rd Generation 2.28 - Impressions Impression: 27 yr old woman who may have vasculitis, hypercoagulable sydnrome, or PFO as etiology for stroke. She is currently asymptomatic. CTA head and neck: normal. Plan: 1. Echo with bubble study done and results pending. 2. factor 5 leiden, lupus anticoagulant, antiphospholipid antibody, protein c, protein s, homocysteine, antithrombin 3, prothrombin gene mutation. 3. Start aspirin 325 mg po daily. 4. COnsider RAIZA if bubble study inconclusive. 5.Patient may eventually need conventional angiogram. THank you Dr. Friedman Assessment & Plan - Assessment and Plan (Free Text) Assessment: 27 yr old woman with TIA/ischemic stroke, etiology of which we are in the process of determining. She may have vasculitis, in light of her past medial history of immunocompromise. Plan; 1. ASA 325 mg po daily. 2. Hypercoagulable workup, including lupus anticoagulant, factor 5 leiden, [id number] mutation, prothrombin, homocysteine, anitphospholipid antibody, protein c, protein s. 3. CTA head and neck with contrast. 4. OFficial report of Echo bubble study to check for PFO. 5. Keep BP at 180-190 systolif 6. IV hydration with normal saline 100 ccs per hour 7. PT ST OT 8. Lipid profile. 9. Neuro checks q shift. Thank you for consulting [facility] Neurology Dr. Eden Friedman MD DPN
--- NOTE | 2018-10-16 11:19 | PCM.STROKE ---
Interval History Stroke Date: 10/12/18 No other interval changes in current, PMHx, FHx, SocHx, ROS: other than on note by: (H&P, Neuro consult note) - Treatment Antiplatelet: Acetylsalicylic acid (ASA) Statin: Atrovastatin - Education Written Stroke Education provided regarding: personal risk factors, stroke warning sign/symptoms, how to activate emergency medical services, need to follow up after discharge Hx Atrial Fibrillation: No Hx Atrial Flutter: No - Therapy Notes Physical therapy notes date reviewed: 10/16/18 Occupational therapy notes date reviewed: 10/16/18 I have reviewed care of the patient with: Dr. Friedman NIHSS Stroke Scale - Date/Time Evaluation Performed Date Performed: 10/16/18 Time Performed: 11:18 When Was NIHSS Performed: Re-evaluation - How Severe is the Stroke Level of Consciousness: 0=Alert LOC to Questions: 0=Both comments correct LOC to commands: 0=Obeys both correctly Best Gaze: 0=Normal Visual: 0=No visual loss Facial: 0=Normal Motor Arm - Left: 0=No drift Motor Arm - Right: 0=No drift Motor Leg - Left: 0=No drift Motor Leg - Right: 0=No drift Limb Ataxia: 0=Absent Sensory: 0=Normal Best Language: 0=No aphasia Dysarthia: 0=Normal articulation Extinction & Inattention (Neglect): 0=Normal, no object Score: 0 Exam - Vital Sign Vital Signs: Temp Pulse Resp BP Pulse Ox 97.7 F 57 L 18 110/67 98 10/16/18 08:00 10/16/18 09:00 10/16/18 08:00 10/16/18 08:00 10/16/18 08:00 Constitutional: No distress, Normal appearing Ophthalmoscopic: absent: papilledema, hemorrhage Right Pupil: Reactive Left Pupil: Reactive Mental Status: Normal: Orientation, Other Motor: Tone Neuro motor strength exam: Left Upper Extremity: 5, Right Upper Extremity: 5, Left Lower Extremity: 5, Right Lower Extremity: 5 DTR: Patellar Left: 2+, Patellar Right: 2+ Flexor Plantar Reflex: Normal Coordination: Finger/nose, Heel/Owens Gait: Normal with Absent Rhomberg - Data reviewed Laboratory results: 10/15/18 16:18 10/15/18 16:18 Triglycerides 83 mg/DL (0-149) 10/15/18 16:18 Cholesterol 159 mg/dL (0-199) 10/15/18 16:18 LDL Cholesterol Direct 96 mg/dL (0-129) 10/15/18 16:18 HDL Cholesterol 57 MG/DL (30-70) 10/15/18 16:18 Hemoglobin A1c 5.3 % (4.2-6.5) 10/15/18 04:30 CT Scan: Viewed and interpreted by me (reviewed the official report) MRI images: Viewed and interpreted by me (reviewed the official report) Echo: echo w bubble results reviewed Assessment and Plan (1) CVA (cerebral vascular accident) Assessment & Plan: Imaging reviewed: -Brain MRI (10/15/18): A small infarct is identified at the left thalamus on acute or subacute basis. No mass effect or definite intracranial hemorrhage appreciable. Examination not significantly changed compared prior CT 10/14/2018 with small dilated perivascular space favored over chronic lacune left basal ganglia inferiorly. Examination otherwise unremarkable. -ECHO with Bubble: + large atrial septal defect (see official report) -CT Head, CTA head and Neck reviewed. -Continue ASA and Statin for now -NPO for RAIZA this morning with cardiology -Heme on case to r/o coagulopathy---labs pending. -Continue PT, OT -Will discuss further treatment and management after RAIZA is completed. Discussed plan with pt and her mother (at bedside). Case discussed with Dr. Friedman Status: Acute
--- NOTE | 2018-10-16 11:34 | CP.PCM.PN ---
Subjective - Date & Time of Evaluation Date of Evaluation: 10/16/18 Time of Evaluation: 09:00 - Subjective Subjective: NO NEW COMPLAINTS Objective - Vital Signs/Intake and Output Vital Signs (last 24 hours): Temp Pulse Resp BP Pulse Ox 97.7 F 57 L 18 110/67 98 10/16/18 08:00 10/16/18 09:00 10/16/18 08:00 10/16/18 08:00 10/16/18 08:00 - Medications Medications: Current Medications Aspirin (Aspirin) 325 mg PO DAILY [facility] Last Admin: 10/16/18 08:56 Dose: Not Given Atorvastatin Calcium (Lipitor) 10 mg PO HS [facility] Last Admin: 10/15/18 21:29 Dose: 10 mg - Labs Labs: 10/15/18 16:18 10/15/18 16:18 - Respiratory Exam Respiratory Exam: Clear to Ausculation Bilateral - Cardiovascular Exam Cardiovascular Exam: REGULAR RHYTHM, +S1, +S2 - Extremities Exam Additional comments: NO LE EDEMA - Additional Findings Additional findings: IRON ASSORTER NSR MRI SHOWS SAME SMALL INFARCT THE CT SCAN MRA WNL NEUROLOGY AND HEMATOLOGY CONSULTS REVIEWED AND LABS FOR HYPERCOAGULABLE STATE AND VASCULITIS WERE SENT ECHOCARDIOGRAM: THE PATIENT DID NOT HAVE A GOOD ECHO WINDOW IN THE SUBCOSTAL VIEW TO DO COLOR DOPPLER STUDIES ACCROSS THE IAS, NO CLEAR CUT ASD SEEN ON COLOR DOPPLER STUDIES ON THE OTHER VIEWS IN MY OPINION BUT BUBBLE STUDIES SHOW EARLY APPEARANCE OF BUBBLES SUGGESTIVE OF AN ASD(IN LESS THAN FIVE BEATS ACCORDING TO THE RECORD CHANGER TESTER), AND THIS WAS ALSO REPORTED IN THE OFFICIAL REPORT Assessment and Plan - Assessment and Plan (Free Text) Assessment: SMALL LEFT CEREBRAL INFARCT POSSIBLE ASD BY BUBBLE STUDY Plan: THE PATIENT IS ON ASPIRIN AND ATORVASTATIN ECHO, MRI AND MRA FINDINGS DISCUSSED WITH THE PATIENT A RAIZA WAS ORDERED AND THE CLINICAL DETAILS WERE DISCUSSED WITH DR PINON WHO WILL DO THE RAIZA
--- NOTE | 2018-10-16 12:04 | CP.PCM.PN ---
Subjective - Date & Time of Evaluation Date of Evaluation: 10/16/18 Time of Evaluation: 11:00 - Subjective Subjective: possible atrial septal defect noted on echo for RAIZA Objective - Vital Signs/Intake and Output Vital Signs (last 24 hours): Temp Pulse Resp BP Pulse Ox 97.7 F 57 L 18 110/67 98 10/16/18 08:00 10/16/18 09:00 10/16/18 08:00 10/16/18 08:00 10/16/18 08:00 - Medications Medications: Current Medications Aspirin (Aspirin) 325 mg PO DAILY [facility] Last Admin: 10/16/18 08:56 Dose: Not Given Atorvastatin Calcium (Lipitor) 10 mg PO HS [facility] Last Admin: 10/15/18 21:29 Dose: 10 mg - Labs Labs: 10/15/18 16:18 10/15/18 16:18 - Head Exam Head Exam: ATRAUMATIC - Eye Exam Eye Exam: Normal appearance - ENT Exam ENT Exam: Mucous Membranes Dry - Respiratory Exam Respiratory Exam: NORMAL BREATHING PATTERN - Cardiovascular Exam Cardiovascular Exam: +S1, +S2 - GI/Abdominal Exam GI & Abdominal Exam: Normal Bowel Sounds - Extremities Exam Extremities Exam: Normal Inspection Assessment and Plan (1) CVA (cerebral vascular accident) Assessment & Plan: on aspirin partial inherited thrombophilia w/u sent (remaining to be done in 6 weeks as outpatient) ASD w/u in progress - for RAIZA f/u cardiology recs on need for addition of therapeutic anticoagulation to aspirin if pt has ASD Status: Acute
[2018-10-16] MEDS ORDERED: Midazolam 2 MG/2 ML VIAL IV ONE (12:35)
--- NOTE | 2018-10-16 17:53 | CP.PCM.PN ---
Subjective - Date & Time of Evaluation Date of Evaluation: 10/16/18 Time of Evaluation: 22:22 - Subjective Subjective: RAIZA done today Chief Optometry Service noes appreciated Objective - Vital Signs/Intake and Output Vital Signs (last 24 hours): Temp Pulse Resp BP Pulse Ox 97.9 F 66 20 109/71 99 10/16/18 15:54 10/16/18 15:54 10/16/18 15:54 10/16/18 15:54 10/16/18 15:54 - Medications Medications: Current Medications Aspirin (Aspirin) 325 mg PO DAILY [facility] Last Admin: 10/16/18 08:56 Dose: Not Given Atorvastatin Calcium (Lipitor) 10 mg PO HS [facility] Last Admin: 10/15/18 21:29 Dose: 10 mg - Labs Labs: 10/15/18 16:18 10/15/18 16:18 - Respiratory Exam Respiratory Exam: NORMAL BREATHING PATTERN - Cardiovascular Exam Cardiovascular Exam: REGULAR RHYTHM - GI/Abdominal Exam GI & Abdominal Exam: Normal Bowel Sounds Assessment and Plan - Assessment and Plan (Free Text) Assessment: Acute/ subacute CVA L thalamus ASA W/U in progress Neurology Cardiology Hematology
[2018-10-17 05:12] VITALS: O2SAT 98
[2018-10-17 08:06] VITALS: RESP 18
--- NOTE | 2018-10-17 10:37 | CP.PCM.PN ---
Subjective - Date & Time of Evaluation Date of Evaluation: 10/17/18 Time of Evaluation: 09:30 - Subjective Subjective: NO NEW PROBLEMS Objective - Vital Signs/Intake and Output Vital Signs (last 24 hours): Temp Pulse Resp BP Pulse Ox 97.8 F 57 L 18 107/81 98 10/17/18 08:00 10/17/18 09:00 10/17/18 08:00 10/17/18 08:00 10/17/18 08:00 - Medications Medications: Current Medications Aspirin (Aspirin) 325 mg PO DAILY [facility] Last Admin: 10/17/18 09:05 Dose: 325 mg Atorvastatin Calcium (Lipitor) 10 mg PO HS [facility] Last Admin: 10/16/18 21:35 Dose: 10 mg - Labs Labs: 10/15/18 16:18 10/15/18 16:18 - Respiratory Exam Respiratory Exam: Clear to Ausculation Bilateral - Cardiovascular Exam Cardiovascular Exam: REGULAR RHYTHM, +S1, +S2 - Extremities Exam Additional comments: NO LE EDEMA OR SIGNS OF DVT - Additional Findings Additional findings: RAIZA SHOWED AN ASD DESCRIBED TO ME BY DR PINON A FLAP WITH FLOW FROM THE LA TO RA LIPID PROFILE REVIEWED Assessment and Plan - Assessment and Plan (Free Text) Assessment: CEREBRAL INFARCT ASD Plan: CONTINUE ASPIRIN AND ATORVASTATIN PATIENT DISCUSSED WITH DR PINON AND DR SIBLEY AND WITH WILL ALSO ADD CLOPIDOGREL AND REQUEST NEUROLOGY'S IN PUT ON THIS AND ANY POSSIBLY ANY OTHER TREATMENT ORAL CONTRACEPTIVE PILLS ARE ABSOLUTELY CONTRAINDICATED IN THIS CLINICAL SITUATION AND THE PATIENT HAS BEEN TOLD TO STOP THEM AND SHE UNDERSTANDS AND AGREES PERCUTANEOUS ASD CLOSURE OF THE ASD WAS DISCUSSED IN DETAIL WITH THE PATIENT. RECENT EVIDENCE HAS SHOWN THAT IT IS NOT A GUARANTEE AGAINST FUTURE EVENTS.. THE PATIENT WILL DO SOME READING ON THIS AND THINK IT OVER.
--- NOTE | 2018-10-17 11:52 | PCM.STROKE ---
Interval History Stroke Date: 10/12/18 - Treatment Antiplatelet: Acetylsalicylic acid (ASA), Plavix Statin: Atrovastatin - Education Written Stroke Education provided regarding: personal risk factors, stroke warning sign/symptoms, how to activate emergency medical services, need to follow up after discharge Hx Atrial Fibrillation: No Hx Atrial Flutter: No - Therapy Notes I have reviewed care of the patient with: Dr. Friedman NIHSS Stroke Scale - Date/Time Evaluation Performed Date Performed: 10/17/18 Time Performed: 11:44 When Was NIHSS Performed: Re-evaluation - How Severe is the Stroke Level of Consciousness: 0=Alert LOC to Questions: 0=Both comments correct LOC to commands: 0=Obeys both correctly Best Gaze: 0=Normal Visual: 0=No visual loss Facial: 0=Normal Motor Arm - Left: 0=No drift Motor Arm - Right: 0=No drift Motor Leg - Left: 0=No drift Motor Leg - Right: 0=No drift Limb Ataxia: 0=Absent Sensory: 0=Normal Best Language: 0=No aphasia Dysarthia: 0=Normal articulation Extinction & Inattention (Neglect): 0=Normal, no object Score: 0 Exam - Vital Sign Vital Signs: Temp Pulse Resp BP Pulse Ox 97.8 F 57 L 18 107/81 98 10/17/18 08:00 10/17/18 09:00 10/17/18 08:00 10/17/18 08:00 10/17/18 08:00 Constitutional: No distress, Normal appearing Ophthalmoscopic: absent: papilledema, hemorrhage Right Pupil: Reactive Left Pupil: Reactive Cardiovascular: Regular rate & rhythm Mental Status: Normal: Orientation, Memory, Attention, Language, Fund of Knowledge Cranial Nerve: Normal: Visual Harris, Extraocular movement intact, Facial Strength, Hearing Motor: Tone, Bulk Neuro motor strength exam: Left Upper Extremity: 5, Right Upper Extremity: 5, Left Lower Extremity: 5, Right Lower Extremity: 5 DTR: Patellar Left: 2+, Patellar Right: 2+ Flexor Plantar Reflex: Normal Coordination: Finger/nose - Data reviewed Laboratory results: 10/15/18 16:18 10/15/18 16:18 Triglycerides 83 mg/DL (0-149) 10/15/18 16:18 Cholesterol 159 mg/dL (0-199) 10/15/18 16:18 LDL Cholesterol Direct 96 mg/dL (0-129) 10/15/18 16:18 HDL Cholesterol 57 MG/DL (30-70) 10/15/18 16:18 Hemoglobin A1c 5.3 % (4.2-6.5) 10/15/18 04:30 Assessment and Plan (1) CVA (cerebral vascular accident) Assessment & Plan: Imaging reviewed: -Brain MRI (10/15/18): A small infarct is identified at the left thalamus on acute or subacute basis. No mass effect or definite intracranial hemorrhage appreciable. Examination not significantly changed compared prior CT 10/14/2018 with small dilated perivascular space favored over chronic lacune left basal ganglia inferiorly. Examination otherwise unremarkable. -ECHO with Bubble: + large atrial septal defect (see official report) -CT Head, CTA head and Neck reviewed. -RAIZA (10/16/18): shows ASD -Neurologically stable for discharge home today. Please provide Rx for ASA 325 mg PO Daily, Plavix 75 mg PO Daily, and Statin as ordered for HS. -Cardiology on the case recs ASA and Plavix for secondary stroke prevention. This may change pending coagulopathy lab results and f/u with heme. -Follow up with Dr. Pan in the office within 1 month---please provide office information. -Follow up with Dr. Sorto, Heme/Onc, to discuss lab results drawn to r/o coagulopathy. -It is recommended that the pt stop taking oral hormonal contraceptio as she will be at a high risk of secondary strokes. We spoke with her about this upon initial consult. We recommend for her to use non-hormonal option and follow up with her [employer] and notify them of the stroke. -Discharge plan and follow ups discussed at length with the pt and mother. Thank you for allowing us to participate in this pt's care. Case discussed with Dr. Friedman Status: Acute
[2018-10-17 12:04] VITALS: BP 119/81; PULSE 58; TEMP 98.3
--- NOTE | 2018-10-17 12:15 | CP.PCM.PCO ---
Assessment & Plan - Assessment and Plan (Free Text) Assessment: patient seen and examined this morning pt. denies any c/o today; pt s/p RAIZA +PFO pt. was seen by Case d/w and who recommend ASA/Plavix/statin ; pt. cleared for discharge to home today by all consultants Above d/w who agrees to above plan pt. will f/u with Dr.Rao Macedo and outpatient Rx for all meds provided pt. instructed to discontinue oral contraceptives
--- NOTE | 2018-10-17 19:58 | CP.PCM.PN ---
Subjective - Date & Time of Evaluation Date of Evaluation: 10/17/18 Time of Evaluation: 22:22 - Subjective Subjective: Above noted D/W consultants in detail Objective - Vital Signs/Intake and Output Vital Signs (last 24 hours): Temp Pulse Resp BP Pulse Ox 98.3 F 58 L 18 119/81 98 10/17/18 12:03 10/17/18 12:03 10/17/18 12:03 10/17/18 12:03 10/17/18 12:03 - Labs Labs: 10/15/18 16:18 10/15/18 16:18 Assessment and Plan - Assessment and Plan (Free Text) Assessment: Acute/ subacute CVA L thalamus ASD on RAIZA ASA Plavix D/C BCP F/U CV and coagulopathy w/u D/W PT and family obtaining 2 opinion at [facility]
== END 2018-10-17 13:48 | disposition home or self-care (01) | DRG 65 ==
LOC: H.ER 20:03 → H.ERHOLD 23:07 → OBSVTOIN 23:07 → INTOOBSV 10-15 00:38 → OBSVTOIN 10-15 00:38 → H.TEL 10-15 02:46 → H.ERHOLD 10-15 02:46 → H.TEL 10-15 16:53
PROVIDERS: ADMIT Family Medicine Geriatric Medicine; ATTEND Family Medicine Geriatric Medicine
DX: I63.81 Other cerebral infarction due to occlusion or stenosis of small artery (principal); Q21.1 Atrial septal defect; Z79.82 Long term (current) use of aspirin; Z82.3 Family history of stroke; Z82.49 Family history of ischemic heart disease and other diseases of the circulatory system

== ENCOUNTER 2018-10-24 18:56 | Emergency (ER) | payer OTHER, BC ==
[2018-10-24 21:26] LABS: BASO % 0.4 % (0.0-2.0); EOS # 0.1 K/uL (0.0-0.7); EOS % 1.5 % (0.0-4.0); HEMOGLOBIN 13.2 g/dL (12.0-16.0); LYMPH % 24.8 % (20.0-40.0); MEAN CELL VOLUME 93.7 fl (81.0-99.0); MEAN CORPUSCULAR HEMOGLOBIN 30.9 pg (27.0-31.0); MEAN PLATELET VOLUME 9.2 fl (7.2-11.7); MONO # 0.5 K/uL (0.0-0.8); MONO % 5.5 % (0.0-10.0); NEUT # 5.6 K/uL (1.8-7.0); NEUT % 67.8 % (50.0-75.0); NRBC % 0.4 % (0.0-0.0); RBC 4.28 Mil/uL (3.80-5.20); RED CELL DISTRIBUTION WIDTH 12.2 % (11.5-14.5); WHITE BLOOD COUNT 8.2 K/uL (4.8-10.8)
[2018-10-24 21:29] LABS: PROTHROMBIN TIME 11.4 Seconds (9.8-13.1)
--- NOTE | 2018-10-24 21:39 | ED PDOC ---
HPI: Eye Injury/Pain Time Seen by Provider: 10/24/18 19:57 Chief Complaint (Nursing): Weakness/Neurological Deficit Chief Complaint (Provider): Visual change History Per: Patient History/Exam Limitations: no limitations Onset/Duration Of Symptoms: Days (x2) Additional Complaint(s): 27 year old female, recently diagnosed with CVA and atrial septal defect on Aspirin and Plavix, reports around 09:30 yesterday, she had sudden visual change in the right eye. She reports it lasted about 30 minutes and resolved and since then, she has been having some pressure behind the right eye without pain. She states she normally uses glasses and has been seeing fine since occurrence. Denies chest pain, shortness of breath, focal weakness, or difficulty with speech or gait. PMD: Dr. Sexton Past Medical History Reviewed: Historical Data, Nursing Documentation, Vital Signs Vital Signs: Last Vital Signs Temp 98.2 F 10/24/18 19:20 Pulse 66 10/24/18 19:20 Resp 16 10/24/18 19:20 BP 115/64 10/24/18 19:20 Pulse Ox 100 10/24/18 19:20 - Medical History PMH: CVA Denies: Atrial Fibrillation, HIV Other PMH: Atrial septal defect - Surgical History Surgical History: No Surg Hx - Family History Family History: States: No Known Family Hx - Social History Current smoker - smoking cessation education provided: No - Home Medications Home Medications: Ambulatory Orders Medication Instructions Recorded RX: Atorvastatin [Lipitor] 10 mg PO HS #30 tab 10/17/18 Apixaban [Eliquis] 5 mg PO BID #60 tab 10/24/18 - Allergies Allergies/Adverse Reactions: Allergies Allergy/AdvReac Type Severity Reaction Status Date / Time No Known Allergies Allergy Verified 10/14/18 20:42 Review of Systems ROS Statement: Except As Marked, All Systems Reviewed And Found Negative (as per HPI otherwise negative) Eyes: Positive for: Vision Change, Other (Pressure behind right eye) Cardiovascular: Negative for: Chest Pain Respiratory: Negative for: Shortness of Breath Neurological: Negative for: Weakness (focal), Other (difficulty with speech or gait) Physical Exam - Reviewed Nursing Documentation Reviewed: Yes Vital Signs Reviewed: Yes - Physical Exam Appears: Positive for: Well, No Acute Distress Head Exam: Positive for: ATRAUMATIC, NORMAL INSPECTION, NORMOCEPHALIC Skin: Positive for: Warm, Dry Eye Exam: Positive for: EOMI, PERRL, Other (Limited fundoscopic exam with no abnormalities). Negative for: Nystagmus, Conjunctival injection ENT: Negative for: Pharyngeal Erythema, Tonsillar Exudate Neck: Positive for: Painless ROM, Supple Cardiovascular/Chest: Positive for: Regular Rate, Rhythm. Negative for: Edema Respiratory: Positive for: Normal Breath Sounds. Negative for: Respiratory Dist ress Gastrointestinal/Abdominal: Positive for: Soft. Negative for: Tenderness Back: Positive for: Normal Inspection. Negative for: Muscle Spasm Extremity: Positive for: Normal ROM. Negative for: Deformity Lymphatic: Negative for: Adenopathy Neurologic/Psych: Positive for: Alert, contact lens edge buffer II-XII (intact), Oriented (x3), Other (Normal speech). Negative for: Motor/Sensory Deficits - Laboratory Results Result Diagrams: 10/24/18 21:11 10/24/18 21:11 Lab Results: PT 11.4 Seconds (9.8-13.1) 10/24/18 21:11 INR 1.0 10/24/18 21:11 APTT 32.0 Seconds (25.6-37.1) 10/24/18 21:11 - ECG O2 Sat by Pulse Oximetry: 100 (RA) Pulse Ox Interpretation: Normal Medical Decision Making Medical Decision Making: Initial Impression: Transient right eye blurriness Initial Plan: --CT head --CMP --Troponin stat --CBC --PTT --Prothrombin time --Urinalysis Labs demonstrate no emergently significant abnormalities Name: YOLANDA CHAU Exam Date: Oct 24, 2018 9:30:46 PM EST Modality Type: CT Description: CT - BRAIN WITH CORONAL AND SAGITTAL MPRS Gender: F Laterality: Not applicable : 89 Referring Physician: Ashleigh South EXAM: CT Head without Intravenous Contrast. CLINICAL HISTORY: Left eye blurry follow up ct head 10-14-2018 TECHNIQUE: Axial computed tomography images of the head/brain without intravenous contrast. 707.02 mGy-cm COMPARISON: CT\SD - HEAD W/O CONTRAST - 10/14/2018 09:58 PM EST FINDINGS: BRAIN The previously seen subacute infarct in the left thalamus now appears chronic as expected. No evidence for acute intracranial hemorrhage. VENTRICLES: No hydrocephalus. ORBITS: The orbits are unremarkable. SINUSES AND MASTOIDS: The visualized paranasal sinuses and mastoid air cells appear clear. BONES: No evidence for displaced calvarial fracture. SOFT TISSUES: Unremarkable. MISCELLANEOUS: No CT evidence for acute territorial infarction. IMPRESSION: 1. The previously seen subacute infarct in the left thalamus now appears chronic as expected. 2. No CT evidence for acute territorial infarction. 3. No evidence for acute intracranial hemorrhage. 4. No evidence for displaced calvarial fracture. 5. The visualized paranasal sinuses and mastoid air cells appear clear. Electronically signed on Oct 24, 2018 9:59:17 PM EST by: Reed Ledezma M.D., NOLAN Certified By [facility] & [facility] Fellowship Trained MRI and CT Specialist DW Dr Gardner Neu[facility] who advises to change ASA/Plavix to Eliquis, and pt can followup with him as scheduled. Also offered to observe further in hospital but pt declines this DW pt findings and plan of care. Also encouraged to make urgent appointment with dry cell battery assembler for evaluation as well. On reeval no new symptoms. Scribe Attestation: Documented by Campbell William acting as a scribe for Ashleigh South MD. Provider Scribe Attestation: All medical record entries made by the Scribe were at my direction and personally dictated by me. I have reviewed the chart and agree that the record accurately reflects my personal performance of the history, physical exam, medical decision making, and the department course for this patient. I have also personally directed, reviewed, and agree with the discharge instructions and disposition. Disposition - Clinical Impression Clinical Impression: Blurry vision - Disposition Referrals: Jaskaran Moe MD [Primary Care Provider] - Disposition: Routine/Home Disposition Time: 22:00 Condition: STABLE Additional Instructions: FOLLOW UP WITH YOUR EYE DOCTOR AND RN TESTING SOON POSSIBLE FOLLOWUP WITH DR GARDNER SCHEDULED STOP TAKING ASPIRIN AND PLAVIX AND START ELIQUIS Prescriptions: Apixaban [Eliquis] 5 mg PO BID #60 tab Instructions: Atrial Septal Defect in Adults Forms: [facility] ED School/Work Excuse
[2018-10-24 21:51] LABS: ALB/GLOB RATIO 1.4 (1.0-2.1); ALBUMIN 4.3 g/dL (3.5-5.0); ALT/SGPT 63 U/L (9-52); AST/SGOT 36 U/L (14-36); BLOOD UREA NITROGEN 14 mg/dl (7-17); CALCIUM 9.7 mg/dL (8.4-10.2); GFR NON-AFRICAN AMERICAN > 60
[2018-10-24 22:56] VITALS: BP 116/64; PULSE 58; RESP 17; TEMP 98.1
--- NOTE | 2018-10-25 14:08 | CT ---
Date of service: 10/24/2018 PROCEDURE: CT HEAD WITHOUT CONTRAST. HISTORY: LEFT eye blurry vision COMPARISON: 10/14/2018 TECHNIQUE: Axial computed tomography images were obtained through the head/brain without intravenous contrast. Radiation dose: Total exam DLP = 707.02 mGy-cm. This CT exam was performed using one or more of the following dose reduction techniques: Automated exposure control, adjustment of the mA and/or kV according to patient size, and/or use of iterative reconstruction technique. FINDINGS: HEMORRHAGE: No intracranial hemorrhage. BRAIN: No mass effect or edema. No atrophy. No white matter ischemic change. Dilated perivascular space immediately caudal to the left lentiform nucleus. Previously identified left thalamic infarct is not evident on the current examination. VENTRICLES: Unremarkable. No hydrocephalus. CALVARIUM: Unremarkable. PARANASAL SINUSES: Unremarkable as visualized. No significant inflammatory changes. MASTOID AIR CELLS: Unremarkable as visualized. No inflammatory changes. OTHER FINDINGS: None. IMPRESSION: No acute abnormality. Previously identified left thalamic infarct is not evident on the current examination. The preliminary findings for this examination were reported by [facility] at 9:59 p.m. on 10/24/2018. There is concurrence of this report with the preliminary findings.
[2018-10-27 10:45] VITALS: O2SAT 100
== END 2018-10-24 23:20 | disposition home or self-care (01) ==
LOC: H.ER 18:56
DX: H53.8 Other visual disturbances (principal); Z79.01 Long term (current) use of anticoagulants; Z79.02 Long term (current) use of antithrombotics/antiplatelets; Z86.73 Personal history of transient ischemic attack (TIA), and cerebral infarction without residual deficits